=== PATIENT | female | born 1980 | race Caucasian/White ===

== ENCOUNTER → 2019-06-25 16:10 | Outpatient (CLI) | payer OTHER ==
[2019-06-25 16:46] LABS: APPEARANCE CLEAR (CLEAR); BILIRUBIN NEGATIVE (NEGATIVE); COLOR YELLOW (YELLOW); GLUCOSE NEGATIVE (NEGATIVE); KETONE NEGATIVE (NEGATIVE); NITRITE NEGATIVE (NEGATIVE); PROTEIN NEGATIVE (NEGATIVE); UROBILINOGEN NORMAL (NORMAL)
== END | disposition home or self-care (01) ==
LOC: D.LDO 16:10
PROVIDERS: ATTEND Obstetrics & Gynecology
DX: O26.893 Other specified pregnancy related conditions, third trimester (principal); Z3A.30 30 weeks gestation of pregnancy; M54.9 Dorsalgia, unspecified; R11.2 Nausea with vomiting, unspecified; R30.9 Painful micturition, unspecified; R30.0 Dysuria

== ENCOUNTER 2019-08-26 10:13 | Outpatient (CLI) | payer OTHER ==
[2019-08-26 11:06] LABS: BASOPHILS 0.1 % (0-2); EOSINOPHILS 0.4 % (0-7); HEMATOCRIT 30.8 % (36.0-48.0); HEMOGLOBIN 10.2 g/dL (12-16); IMMATURE GRANULOCYTES 0.5 % (0-5); LYMPHOCYTES 20.8 % (15-50); MCH 28.6 pg (26.0-34.0); MCHC 33.1 g/dL (31.0-37.0); MCV 86.3 fL (80.0-100.0); MEAN PLATELET VOLUME 11.2 fL (7.4-10.4); MONOCYTES 11.6 % (2-11); NEUTROPHILS 66.6 % (40-80); PLATELET COUNT 222 10x3/uL (130-400); RBC 3.57 10x6/uL (4.00-5.40); RDW 12.5 % (11.5-14.5); WBC 7.4 10x3/uL (4.8-10.8)
[2019-08-26 11:13] LABS: BILIRUBIN NEGATIVE (NEGATIVE); GLUCOSE NEGATIVE (NEGATIVE); KETONE NEGATIVE (NEGATIVE); NITRITE NEGATIVE (NEGATIVE); SPECIFIC GRAVITY 1.005 (1.005-1.020); UROBILINOGEN NORMAL (NORMAL)
[2019-08-26 11:14] LABS: RED CELLS - URINE 0-5 /hpf (0-5); WHITE CELLS - URINE 0-5 /hpf (NEGATIVE)
[2019-08-26 11:15] LABS: BACTERIA MODERATE /hpf (NEGATIVE); EPITHELIAL CELLS 0-5 /hpf (0-5)
[2019-08-26 11:28] LABS: CALC OSMOLALITY 274 mosm/kg (275-300); CALCIUM 8.5 mg/dL (8.5-10.1); CARBON DIOXIDE 21.5 mmol/L (21.0-32.0); CHLORIDE - SERUM 107 mmol/L (98-107); CREATININE - SERUM 0.6 mg/dL (0.6-1.3); POTASSIUM - SERUM 3.4 mmol/L (3.5-5.1); SODIUM 140 mmol/L (136-145); UREA NITROGEN 7 mg/dL (7-18); eGFR NON AFRICAN AMERICAN > 90 mL/min (90-120)
[2019-08-26 11:30] LABS: ALBUMIN 2.4 g/dL (3.4-5.0); ALKALINE PHOSPHATASE 154 U/L (30-120); ALT (SGPT) 10 U/L (10-68); AMYLASE - SERUM 51 U/L (25-115); BILIRUBIN - TOTAL 0.28 mg/dL (0.2-1.3); GLUCOSE 67 mg/dL (74-106); LIPASE 102 U/L (73-393); MAGNESIUM - SERUM 1.8 mg/dL (1.8-2.4); PROTEIN - SERUM 6.5 g/dL (6.4-8.2)
== END 2019-08-26 14:16 | disposition home or self-care (01) ==
LOC: D.LDO 10:13
PROVIDERS: ATTEND Student in an Organized Health Care Education/Training Program
DX: O26.899 Other specified pregnancy related conditions, unspecified trimester (principal); R11.2 Nausea with vomiting, unspecified

== ENCOUNTER → 2019-08-26 22:19 | Outpatient (CLI) | payer OTHER ==
[~2019-08-26 22:19] MED LIST: PROTONIX40 MG PO; TORADOL10 MG PO; TYLENOL W/CODEI1 TAB PO
[2019-08-26 23:39] LABS: BILIRUBIN NEGATIVE (NEGATIVE); GLUCOSE NEGATIVE (NEGATIVE); KETONE NEGATIVE (NEGATIVE); NITRITE NEGATIVE (NEGATIVE); UROBILINOGEN NORMAL (NORMAL)
== END | disposition home or self-care (01) ==
LOC: D.LDO 22:19
PROVIDERS: ATTEND Obstetrics & Gynecology
DX: O62.9 Abnormality of forces of labor, unspecified (principal); Z3A.39 39 weeks gestation of pregnancy

== ENCOUNTER 2019-08-29 05:42 | Inpatient (IN) | payer OTHER ==
[2019-08-29 05:56] VITALS: BP 116/73; BMI 28.7; BMI 35.8
[2019-08-29] MEDS ORDERED: PROTONIX40 MG PO (06:05)
[2019-08-29 08:04] LABS: HEMATOCRIT 28.4 % (36.0-48.0); HEMOGLOBIN 9.4 g/dL (12-16); MCH 28.1 pg (26.0-34.0); MCHC 33.1 g/dL (31.0-37.0); MEAN PLATELET VOLUME 11.1 fL (7.4-10.4); RBC 3.34 10x6/uL (4.00-5.40); RDW 12.4 % (11.5-14.5); WBC 6.1 10x3/uL (4.8-10.8)
--- NOTE | 2019-08-29 21:40 | NUR ---
up to bath room, leigh care done, gown changed, unable to void at this time, Tylenol 650mg po for c/o cramping
--- NOTE | 2019-08-29 22:00 | NUR ---
IV SALINE LOCKED, NO REDNESS, PATENT AND FLUSHED WITH 10ML NS
[2019-08-30] VITALS: BP 108/49
--- NOTE | 2019-08-30 00:09 | NUR ---
PT C/O PAIN IN HER RASHEED AREA. TYLENOL 650 MG GIVEN. PT HAS BEEN UP TO THE BR AND VOIDED. BLEEDING IS MODERATE. PADS AND DISPOSIBLE PANTYS GIVEN. PT HAD A SANDWICH TO EAT.
--- NOTE | 2019-08-30 03:00 | NUR ---
PT IS RESTING QUIETLY. HER IS IN THE ROOM WELL THE BABY. NO C/O. PT SALINE LOCK IS IN HER LEFT HAND.
--- NOTE | 2019-08-30 03:31 | NUR ---
PERCOCET 5 GIVEN PO FOR PAIN. PT IS VERY SORE FROM DELIVERY. CALLED DR. NAQVI TO OBTAIN AN ORDER.
--- NOTE | 2019-08-30 04:46 | NUR ---
RESTING WELL. BABY IN ROOM. NO NEW C/O AT BEDSIDE.
--- NOTE | 2019-08-30 06:00 | NUR ---
PT APPEARS TO BE SLEEPING NOW. HER IS SLEEPING ON THE COUCH. SHE STATES A BIT EARLIER THAT THE PERCOCET WAS WORKING AND HER PAIN WAS DECREASED.
[2019-08-30 06:39] LABS: BASOPHILS 0.1 % (0-2); EOSINOPHILS 0.4 % (0-7); HEMATOCRIT 27.9 % (36.0-48.0); HEMOGLOBIN 9.3 g/dL (12-16); IMMATURE GRANULOCYTES 0.3 % (0-5); LYMPHOCYTES 20.9 % (15-50); MCH 28.5 pg (26.0-34.0); MCHC 33.3 g/dL (31.0-37.0); MCV 85.6 fL (80.0-100.0); MEAN PLATELET VOLUME 11.2 fL (7.4-10.4); MONOCYTES 7.5 % (2-11); NEUTROPHILS 70.8 % (40-80); PLATELET COUNT 188 10x3/uL (130-400); RBC 3.26 10x6/uL (4.00-5.40); RDW 12.2 % (11.5-14.5)
[2019-08-30 06:52] LABS: WBC 10.1 10x3/uL (4.8-10.8)
[2019-08-30 07:13] LABS: RAPID PLASMA REAGIN Non Reactive (Non Reactive)
--- NOTE | 2019-08-30 08:03 | NUR ---
AM ASSESSMENT COMPLETED. PT RATES PAIN AT 2/10 AT THIS TIME AND STATES MOST OF HER DISCOMFORT IS BURNING WITH VOIDS AND INCREASE CRAMPING WITH . FUNDUS FIRM AT U/1 WITH LIGHT BLEEDING NOTED TO RASHEED PAD AND PT DENIES CLOTS WITH VOIDS. SALINE LOCK TO LEFT WRIST PATENT WITH NO REDNESS AND SHE DENIES TENDERNESS WITH TOUCH. SITTING UP IN BED EATING REGULAR DIET WITHOUT NO NEEDS AT THIS TIME. SPOUSE AT BEDSIDE HOLDING INFANT. SIDE RAILS UP X 2 WITH CALL LIGHT IN REACH.
--- NOTE | 2019-08-30 08:17 | NUR ---
DR NAQVI ON UNIT, REPORT GIVEN OF PT COMPLAINT OF PERINEAL BURNING WITH VOIDS. ORDER RECIEVED FOR DERMAPLAST.
--- NOTE | 2019-08-30 09:00 | NUR ---
verbal instructions given on use of tucks pad/dermaplast and betadine. Pt states her understanding and will call if assistance is needed. Saline lock covered and towels provided for shower. in nursery at this time. Spouse at bedside.
--- NOTE | 2019-08-30 11:20 | NUR ---
called to room with pt complaint "I think my IV is coming apart." extension set noted to apart from iv hub. Pt also complains of tenderness below saline lock, between her elbow and saline lock. Unable to flush easily so saline lock removed intact. there is some redness noted where iv cath was located. Infant brought to room via crib by nursery nurse.
--- NOTE | 2019-08-30 12:30 | NUR ---
DR KAUR ON UNIT AND QUESTIONS PT DESIRES DISCHARGE TODAY, IN TO SPEAK WITH PATIENT
--- NOTE | 2019-08-30 13:20 | NUR ---
DR NAQVI ON UNIT, REPORT GIVEN VERBALLY OF PATIENTS DESIRE TO DISCHARGE HOME TODAY. ORDER RECEIVED.
--- NOTE | 2019-08-30 14:00 | NUR ---
INFANT TAKEN TO ROOM VIA CRIB FOR FEEDING. PT STATES THAT IF DR NAQVI OK TO DISCHARGE HER THAN YES THEY WOULD LIKE TO GO HOME AFTER 24 HOURS. OLENA IN NURSERY NOTIFIED OF THIS
--- NOTE | 2019-08-30 15:33 | NUR ---
INFANT TAKEN TO NURSERY VIA CRIB BY EDITH, STATES THAT PATIENT IS CURRENTLY SLEEPING AND HE WAS GOING TO TAKE THEIR DAUGHTER OUT IN ORDER FOR PATIENT TO CONTINUE TO REST.
--- NOTE | 2019-08-30 16:45 | NUR ---
PT RESTING WITH EYES CLOSED AND RESP EVEN, LEFT UNDISTURBED AT THIS TIME.
--- NOTE | 2019-08-30 17:11 | NUR ---
CALLED TO ROOM WITH REQUEST FOR TYLENOL. PT ALSO STATES THAT HER ARM WHERE IV WAS IS NOW VERY TENDER UP TO HER ELBOW. THERE IS NOTICABLE SWELLING AND INCREASED REDNESS ON HER LEFT ARM AND APPEARS TO FOLLOW VEIN FAR SWELLING IS LOCATED. WARM COMPRESS PROVIDED TO POSSIBLE DECREASE HER DISCOMFORT.
--- NOTE | 2019-08-30 18:00 | NUR ---
Ramirez COX RN BROUGHT TO ROOM PER THIS RN REQUEST TO ASSESS PT LEFT ARM. THE SWELLING APPEARS TO BE INCREASING AND NOW IS SLIGHTLY WARM TO TOUCH. PT ALSO STATES THAT HER ELBOW IS MORE TENDER TO TOUCH. DR LEACH BROUGHT IN TO EVALUATE AND SUGGEST WARM COMPRESS AND NSAIDS. PT EXPLAINS THAT SHE HAS HAD A GASTRIC SLEEVE 2+ YEARS AGO AND IS CONCERNED ABOUT TAKING NSAIDS. DR LEACH CONSULTS WITH DR MARTINEZ WHO EXPLAINS THAT IF GASTIC SLEEVE IS GREATER THAN 9MONTHS SHE MAY TAKE SCHEDULED NSAIDS X 10 DAYS WITHOUT ANY STOMACH DISCOMFORT OR CONCERN. PT IS AGREEABLE TO TAKING THE TORDAL 10MG EVERY 6 HOURS X [address] LEACH ALSO GIVES ORDER FOR TYLENOL3 (15 TABLETS) BE CALLED IN TO PT PHARMACY OF CHOICE, WHICH SHE ASK THAT BE [facility].
[2019-08-30] MEDS ORDERED: TORADOL10 MG PO (18:39)
[2019-08-30] MEDS ORDERED: TYLENOL W/CODEI1 TAB PO (18:41)
--- NOTE | 2019-08-30 19:00 | NUR ---
tordal given po as ordered. verbal and written d/c instructions gone over with pt and spouse. pt also given scripts for tordal 10mg and tylenol #3 with info on each. pt states her understanding and denies any questions. Nursery notified that patient had her d/c instructions and could be taken out when infant was ready.
--- NOTE | 2019-08-31 11:47 | MORECARE ---
CASE MANAGEMENT DISCHARGE SUMMARY PATIENT: ADRIANE ROSS UNIT: [id number] ADM DATE: 08/29/19 AGE: 39 : 84 SEX: F ROOM/BED: D.1222 AUTHOR: VAMSHI BELTRAN PHYSICIAN: REFERRING PHYSICIAN: SHANIQUA NAQVI DO DATE OF SERVICE: 08/31/19 Discharge Plan Patient Name: ADRIANE ROSS Facility: [facility]:[place] : 1980 Planned Disposition: Home Anticipated Discharge Date: 08/30/19 Discharge Date: 08/30/2019 Expected LOS: 1 Initial Reviewer: [email or web address] Initial Review Date: 08/29/2019 Generated: 08/31/19 12:46 pm Patient Name: ADRIANE ROSS Page [id number] at 1147 All edits/amendments must be made on the electronic document DICTATION DATE: 08/31/19 1146 DIGITAL AD TRAFFICKER: CHELY 08/31/19 1146 RPT#: [id number] DC DATE:08/30/19 STATUS: DIS IN [facility] [address] [place] [address] END OF REPORT
== END 2019-08-30 20:30 | disposition home or self-care (01) | DRG 807 ==
LOC: D.LD 05:42 → D.WS 05:42
PROVIDERS: ADMIT Student in an Organized Health Care Education/Training Program; ATTEND Student in an Organized Health Care Education/Training Program
PROC: 10E0XZZ Delivery of Products of Conception, External Approach (ICD-10-PCS; principal; 2019-08-29)
PROC: 0KQM0ZZ Repair Perineum Muscle, Open Approach (ICD-10-PCS; 2019-08-29)
DX: O76 Abnormality in fetal heart rate and rhythm complicating labor and delivery (principal); Z37.0 Single live birth; Z3A.39 39 weeks gestation of pregnancy; O70.1 Second degree perineal laceration during delivery